=== PATIENT | female | born 1990 | race Caucasian/White ===

== ENCOUNTER 2024-01-03 23:02 | Emergency (ER) | payer OTHER, SELFPAY ==
[2024-01-03 23:06] VITALS: BP 113/84
[2024-01-03 23:37] LABS: % Eosinophils 2.9 % (0-6); % Immature Granulocytes 0.3 % (0-0.5); % Lymphocytes 33.8 % (20.5-51.1); % Monocytes 8.7 % (1.7-9.3); % Neutrophils 53.3 % (42.2-75.2); Absolute Basophils 0.1 10^3/uL (0-0.2); Absolute Eosinophils 0.2 10^3/uL (0-0.7); Absolute Monocytes 0.5 10^3/uL (0.1-0.6); Absolute Neutrophils 3.1 10^3/uL (1.4-6.5); Hematocrit 38.1 % (37.0-47.0); Hemoglobin 13.2 g/dL (12.0-16.0); Mean Corp Hgb Conc. 34.6 g/dL (33.0-37.0); Mean Corpuscular Volume 92.5 fL (81.0-99.0); Mean Platelet Volume 9.6 fL (7.4-10.4); Nucleated Red Blood Cells % 0 %; Platelet Count 250 10^3/uL (130-400); Red Blood Cell Count 4.12 10^6/uL (4.20-5.40); White Blood Cell Count 5.8 10^3/uL (4.8-10.8)
[2024-01-03 23:38] LABS: Urine Albumin Negative (Neg - Trace); Urine Bilirubin Negative (Negative); Urine Character Clear (Clear); Urine Color Straw; Urine Glucose Negative (Negative); Urine Ketone Negative (Negative); Urine Leukocyte Negative (Negative); Urine Nitrite Negative (Negative); Urine Occult Blood Negative (Negative); Urine Specific Gravity 1.015 (<1.030); Urine Urobilinogen Negative (Neg - 1+)
[2024-01-03 23:49] LABS: HCG, Serum Qualitative Screen Negative
[2024-01-03 23:50] LABS: Lactic Acid 1.9 mmol/L (0.7-2.0)
[2024-01-03 23:58] LABS: ALT (SGPT) 13 U/L (0-35); AST (SGOT) 20 U/L (14-36); Albumin 4.4 g/dl (3.5-5.0); Alkaline Phosphatase 49 U/L (38-126); Blood Urea Nitrogen 13 mg/dl (7-17); Calcium 9.5 mg/dl (8.4-10.2); Carbon Dioxide 21 mmol/L (22-30); Chloride 104 mmol/L (98-107); Glucose 97 mg/dl (70-99); Lipase 93 U/L (23-300); Potassium 3.4 mmol/L (3.5-5.1); Sodium 140 mmol/L (135-145); Total Bilirubin < 0.1 mg/dl (0.2-1.3); Total Protein 6.9 g/dl (6.3-8.2); eGFR > 60.00
--- NOTE | 2024-01-04 01:29 | ED.GENMED ---
History of Present Illness
<Mina Severino MD, Resident - Last Filed: 01/04/24 03:02>
General
Chief Complaint: Abdominal Pain
Source: patient
Time Seen by Provider: 01/04/24 01:03
Travel History
Have you traveled to any high risk areas for coronavirus over the past 14 days?: No
Have you had any contact with someone who has COVID-19?: No
Do you have any symptoms of coronavirus? Fever > 100 degrees, chills, cough, shortness of breath, sore throat, loss of taste or smell, muscle aches, or headache?: No
History of Present Illness
History of Present Illness:
Shavonne Maloney, 33-year-old female with a history of appendectomy complicated by post-op small bowel ischemia status-post resection, has had a week of intermittent upper abdominal/epigastric pain and intermittent nausea. The pain is dull and
comes on randomly; not associated with food. The pain sometimes radiates into her chest, which she describes as a mild burning sensation. No clear alleviating or exacerbating factors. No changes in bowel habits; continues to have intermittent
constipation but no diarrhea or change in stool color or consistency. She did have a likely viral upper respiratory infection 3 weeks ago; with mild residual cough now. Denies any fevers, chills, night sweats, lightheadedness, dizziness, weakness,
fatigue or unintentional weight loss. Denies any genitourinary symptoms.
Past History
<Mina Severino MD, Resident - Last Filed: 01/04/24 03:02>
Past History
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
ED Past Surgical History: Appendectomy, Bowel resection and
Social History
Tobacco: Smoker
Alcohol: Occasional
Drug: None
Personal:
Living: with family
Employment: Employed
Family History
Family History: Other
Review of Systems
<Mina Severino MD, Resident - Last Filed: 01/04/24 03:02>
Review of Systems
All Other Systems: ROS reviewed and negative except as documented in HPI and ROS
Phy Exam
<Mina Severino MD, Resident - Last Filed: 01/04/24 03:02>
General Physical Exam
General Presentation: well appearing and no apparent distress
General Skin: warm and dry
General Habitus: normal
General Mental: alert
General Hydration: appears well hydrated
ENT Exam
ENT Exam: EOMI, pharynx normal, neck supple and normocephalic
Eye Exam
Eye Exam: PERRL, cornea clear and conjunctiva normal
Cardiovascular Exam
Cardiovascular Exam: regular rate/rhythm, no edema, no murmur and normal peripheral pulses
Pulmonary Exam
Pulmonary Exam: lungs clear, no respiratory distress, no rales, no crackles, no rhonchi, no stridor, no wheezing and no cough
Gastrointestinal Exam
Gastrointestinal Exam: normal bowel sounds, soft, no organomegaly, no pulsatile mass, non distended and tender (mild epigastric)
Neurological Exam
Neurological Exam: alert, oriented x3, no motor deficits and speech normal
Musculoskeletal Exam
Musculoskeletal Exam: full ROM and no edema
Skin Exam
Skin Exam: normal color, warm/dry, no petechia and other (maculopapular rash over bilateral lower abdomen)
Psychiatric Exam
Psychiatric Exam: normal mood/affect
Course
<Mina Severino MD, Resident - Last Filed: 01/04/24 03:02>
Orders/Labs/Results
Orders:
Orders
01/03/24 23:12
Test Result ONCE
01/03/24 23:22
Complete Blood Count/With Diff Urgent
Comprehensive Metabolic Panel Urgent
HCG, Serum Qualitative Screen Urgent
Lactate Level [Lactic Acid] Urgent
Lipase Urgent
Urinalysis Reflex To Culture Urgent
Date Specimen was Collected: 01/03/24
Time Specimen was Collected: 23:11
01/04/24 01:18
CT Abd/pelvis W Iv Cont Urgent
Comment:
Reason For Exam: abd pain and nausea
01/04/24 01:51
Ondansetron Injectable [Zofran] 4 mg IV NOW STA
Pantoprazole [Protonix] 40 mg PO NOW STA
Abnormal Lab Results
01/03/24
23:22
RBC 4.12 L 10^6/uL
(4.20-5.40)
MCH 32.0 H pg
(27.0-31.0)
Potassium 3.4 L mmol/L
(3.5-5.1)
Carbon Dioxide 21 L mmol/L
(22-30)
Total Bilirubin < 0.1 L mg/dl
(0.2-1.3)
01/03/24 23:22
01/03/24 23:22
Vital Signs
Initial and Last Documented VS:
Initial Vital Signs
Temp Pulse Resp BP Pulse Ox
98.0 F 95 18 113/84 100
01/03/24 23:06 01/03/24 23:06 01/03/24 23:06 01/03/24 23:06 01/03/24 23:06
Last Documented Vital Signs
Temp Pulse Resp BP Pulse Ox
98.0 F 81 16 111/54 99
01/03/24 23:06 01/04/24 02:55 01/04/24 02:55 01/04/24 02:55 01/04/24 02:55
<Fredy Armijo MD - Last Filed: 01/04/24 02:29>
Orders/Labs/Results
Orders:
Orders
01/03/24 23:12
Test Result ONCE
01/03/24 23:22
Complete Blood Count/With Diff Urgent
Comprehensive Metabolic Panel Urgent
HCG, Serum Qualitative Screen Urgent
Lactate Level [Lactic Acid] Urgent
Lipase Urgent
Urinalysis Reflex To Culture Urgent
Date Specimen was Collected: 01/03/24
Time Specimen was Collected: 23:11
01/04/24 01:18
CT Abd/pelvis W Iv Cont Urgent
Comment:
Reason For Exam: abd pain and nausea
01/04/24 01:51
Ondansetron Injectable [Zofran] 4 mg IV NOW STA
Pantoprazole [Protonix] 40 mg PO NOW STA
Abnormal Lab Results
01/03/24
23:22
RBC 4.12 L 10^6/uL
(4.20-5.40)
MCH 32.0 H pg
(27.0-31.0)
Potassium 3.4 L mmol/L
(3.5-5.1)
Carbon Dioxide 21 L mmol/L
(22-30)
Total Bilirubin < 0.1 L mg/dl
(0.2-1.3)
01/03/24 23:22
01/03/24 23:22
Vital Signs
Initial and Last Documented VS:
Initial Vital Signs
Temp Pulse Resp BP Pulse Ox
98.0 F 95 18 113/84 100
01/03/24 23:06 01/03/24 23:06 01/03/24 23:06 01/03/24 23:06 01/03/24 23:06
Last Documented Vital Signs
Temp Pulse Resp BP Pulse Ox
98.0 F 81 16 111/54 99
01/03/24 23:06 01/04/24 02:55 01/04/24 02:55 01/04/24 02:55 01/04/24 02:55
<Mina Severino MD, Resident - Last Filed: 01/04/24 03:02>
MDM/Problems Addressed
MDM/Problems Addressed:
CT AP unremarkable for any acute pathologies. Symptoms likely related to GERD or constipation; will send scripts to pharmacy. Follow-up with PCP.
<Mina Severino MD, Resident - Last Filed: 01/04/24 03:02>
*Critical Care Note
Total Time (30-74mins, 75-104mins- exclusive of procedures): Not Applicable
ED Attending Note
<Mina Severino MD, Resident - Last Filed: 01/04/24 03:02>
-
Portions of this chart may have been created with voice recognition software.� Occasional wrong word or��sound alike� substitutions may have occurred due to the inherent limitations of voice recognition software.
<Fredy Armijo MD - Last Filed: 01/04/24 02:29>
ED Attending Note
Patient seen and examined by attending physician: Yes
I performed a history and physical exam of patient and discussed management with resident, I reviewed resident's note and agree with documented findings and plan of care.: Yes
ED Attending Note:
I have seen and evaluated the patient with a [id number] encounter. I have spoken to the resident and involved in the medical history, the physical exam, medical decision making.
Evaluation and management service: agree unless noted differently below.
Results interpretation: agree unless noted differently below.
Focused HPI: 33-year-old female with past medical history as documented presents to the ER for evaluation of abdominal pain. Patient reports onset of symptoms about a week ago and they have been constant since that time. She reports vague upper
abdominal pain associate with nausea. She reports somewhat poor appetite. She denies any vomiting. She denies any diarrhea, reports mild constipation. She denies any urinary symptoms. She denies any vaginal bleeding or discharge. No fevers or
chills. She does have prior surgical history of appendectomy and partial small bowel resection.
Physical exam: Awake alert not in distress. Vital signs all within normal limits. Abdomen soft, nondistended, mild tenderness epigastrium with no peritoneal signs. No masses.
Medical Decision Makin-year-old female presents to the emergency room for evaluation of epigastric abdominal pain associate with nausea for the past week. Vitals and exam as above. Recent labs including a CBC and a CMP�no clinically
significant abnormalities; notably normal LFTs and lipase. hCG negative. Urinalysis negative for infection. CT abdomen pelvis shows moderate stool burden, no other acute pathology to account for symptoms. Symptoms could be from constipation
versus gastritis. No clear indication for admission to the hospital at this point, stable for discharge on PPI, Zofran as needed, MiraLAX as needed. Follow-up with PCP.
Discharge Plan
Departure
Patient Disposition: Home (Routine Discharge)
Date of Disposition: 01/04/24
Time of Disposition: 02:37
Patient with high blood pressure during this ER visit?: No
Condition: Good
Discharge Problem:
Gastroesophageal reflux disease
Instructions: Acid Reflux and GERD in Adults (DC)
Prescriptions:
New
pantoprazole 40 mg tablet,delayed release (DR/EC)
40 mg PO DAILY 14 Days Qty: 14 0RF
ondansetron HCl 4 mg tablet
4 mg PO Q8H PRN (Reason: nausea and vomiting) Qty: 14 0RF
sucralfate [Carafate] 100 mg/mL suspension
10 ml PO AC Qty: 414 3RF
No Action
lansoprazole 30 MG tablet,disintegrat, delay rel
30 mg PO DAILY Qty: 30 0RF
Rx Instructions:
Take in the morning
Referrals:
Sacha Hill MD [Family Provider] -
Interventions
Interventions:
*Risk Screen - Suicide Last Done: 01/03/24 23:10
*Neglect/Abuse Screening Last Done: 01/04/24 01:08
ED- Fall Risk Assessment Last Done: 01/04/24 00:59
*ED COVID-19 Vaccine History Last Done: 01/04/24 01:08
UI-Ebumym-Ztqdtzuifq Assessment Last Done: 01/04/24 00:59
Discharge Date and Time
Print Language: [id number]
[2024-01-04] MEDS: PROTONIX 40 MG PO (02:52)
[2024-01-04 02:55] VITALS: BP 111/54
== END 2024-01-04 03:07 | disposition home or self-care (01) ==
LOC: EMR 23:02
PROVIDERS: Emergency Medicine; EMERGENCY PHYSICIAN Emergency Medicine; FAMILY PHYSICIAN Internal Medicine
DX: K21.9 Gastro-esophageal reflux disease without esophagitis (principal); F17.200 Nicotine dependence, unspecified, uncomplicated; K59.00 Constipation, unspecified; Z90.49 Acquired absence of other specified parts of digestive tract
CPT/HCPCS: 99284; 74177; 80053; 81003; 83605; 83690; 84703; 85025; Q9967

== ENCOUNTER 2025-03-21 21:48 | Emergency (ER) | payer OTHER, SELFPAY ==
[2025-03-21 21:53] VITALS: BP 126/95
== END 2025-03-22 02:16 | disposition left against medical advice (07) ==
LOC: EMR 21:48
PROVIDERS: EMERGENCY PHYSICIAN Emergency Medicine; FAMILY PHYSICIAN Internal Medicine
DX: R22.42 Localized swelling, mass and lump, left lower limb (principal); Z53.21 Procedure and treatment not carried out due to patient leaving prior to being seen by health care provider
CPT/HCPCS: 93971